=== PATIENT | female | born 1940 | race Caucasian/White ===

== ENCOUNTER → 2016-12-31 | Outpatient (CLI) | payer MEDICARE, OTHER | END | disposition home or self-care (01) | LOC: PCVCIMAG 10:36 | PROVIDERS: ATTEND Internal Medicine | DX: I65.23 Occlusion and stenosis of bilateral carotid arteries (principal); I25.10 Atherosclerotic heart disease of native coronary artery without angina pectoris; I10 Essential (primary) hypertension; E78.5 Hyperlipidemia, unspecified; J44.9 Chronic obstructive pulmonary disease, unspecified; F17.200 Nicotine dependence, unspecified, uncomplicated | CPT/HCPCS: 80061; 93005; 93880; G0463 ==

== ENCOUNTER → 2019-02-11 | Outpatient (CLI) | payer OTHER ==
--- NOTE | 2019-02-11 14:30 | PCVCIMAG ---
APPROVED REPORT Indications Stenosis Doppler Spectral Velocity Analysis PSV / EDVPSV / EDV ECA (R) 103 / 14 cm/sECA (L) 74 / 8 cm/s dICA (R) 43 / 10 cm/sdICA (L) 39 / 11 cm/s Mary (R) 71 / 16 cm/smICA (L) 72 / 15 cm/s pICA (R) 121 / 24 cm/spICA (L) 70 / 16 cm/s Bulb (R) 76 / 14 cm/sBulb (L) 54 / 12 cm/s dCCA (R) 69 / 13 cm/sdCCA (L) 74 / 13 cm/s mCCA (R) 91 / 13 cm/smCCA (L) 81 / 13 cm/s Vert (R) 43 / 5 cm/sVert (L) 38 / 10 cm/s ICA/CCA 1.33ICA/CCA 0.89 Basic Measurements Blood Pressure: Pulses: Right Left RightLeft Brachial(Sitting) 112/70zqGm273/66mmHgTemporal Real Time B-Mode Imaging Vert. (R)AntegradeVert. (L)Antegrade Findings The right carotid bulb has moderate calcified plaque. The right proximal internal carotid artery shows 40-50% stenosis. The right common carotid artery shows no significant stenosis. The right external carotid artery shows no significant stenosis. The left carotid bulb has moderate plaque. The left proximal internal carotid artery shows <40% stenosis. The left common carotid artery shows no significant stenosis. The left external carotid artery shows no significant stenosis. Conclusion 1. Right internal carotid artery stenosis (40-50%). 2. Left internal carotid artery stenosis (<40%) 3. Antegrade vertebral flow
--- NOTE | 2019-02-11 14:44 | PCVCIMAG ---
APPROVED REPORT Study performed: 02/11/2019 13:10:17 EXAM: Comprehensive 2D, Doppler, and color-flow Echocardiogram Patient Location: Echo lab Status: routine BSA: 1.73 HR: 69 bpmBP: 124/74 mmHg Rhythm: NSR Other Information Study Quality: Good Risk Factors: Cardiac Risk Factors: HTN, Hyperlipidemia, Smoking Indications CAD COPD 2D Dimensions IVSd: 9.97 (7-11mm)LVOT Diam: 18.96 (18-24mm) LVDd: 39.53 mm PWd: 9.70 (7-11mm)Ascending Ao: 32.13 (22-36mm) LVDs: 31.56 (25-40mm) Left Atrium: 20.22 (27-40mm) Aortic Root: 27.21 mm LV Single Plane 4CH: 68.95 % LV Single Plane 2CH: 76.31 % Biplane EF: 71.9 % Volumes Left Atrial Volume (Systole) Single Plane 4CH: 19.64 mLSingle Plane 2CH: 16.40 mL LA ESV Index: 11.00 mL/m2 Aortic Valve AoV Peak Geoffrey.: 1.78 m/s AO Peak Gr.: 12.74 mmHgLVOT Max P.54 mmHg LVOT Max V: 1.18 m/s KRISTAL Vmax: 1.86 cm2 Mitral Valve E/A Ratio: 0.7 MV Decel. Time: 303.80 ms MV E Max Geoffrey.: 0.63 m/s MV A Geoffrey.: 0.88 m/s TDI E/Lateral E': 7.88E/Medial E': 9.00 Medial E' Geoffrey.: 0.07 m/s Lateral E' Geoffrey.: 0.08 m/s Pulmonary Valve PV Peak Gr.: 3.61 mmHg Pulmonary Vein P Vein S: 0.45 m/sP Vein A: 0.30 m/s P Vein D: 0.36 m/sP Vein A Dur.: 96.9 msec P Vein S/D Ratio: 1.25 Left Ventricle The left ventricle is normal size. There is normal LV segmental wall motion. There is normal left ventricular wall thickness. Left ventricular systolic function is normal. The left ventricular ejection fraction is within the normal range. LVEF is 60-65%. Mild diastolic dysfunction is present (impaired relaxation pattern). Right Ventricle The right ventricle is normal size. The right ventricular systolic function is normal. Atria The left atrium size is normal. The right atrium size is normal. Aortic Valve The aortic valve is trileaflet, mildly sclerotic No aortic regurgitation is present. There is no aortic valvular stenosis. Mitral Valve The mitral valve is normal in structure. There is no mitral valve regurgitation noted. No evidence of mitral valve stenosis. Tricuspid Valve The tricuspid valve is normal in structure. There is no tricuspid valve regurgitation noted. Pulmonic Valve The pulmonary valve is normal in structure. There is no pulmonic valvular regurgitation. Great Vessels The aortic root is normal in size. IVC is normal in size and collapses >50% with inspiration. Pericardium There is no pericardial effusion. <Conclusion> Left ventricular systolic function is normal. There is normal LV segmental wall motion. LVEF is 60-65%. Mild diastolic dysfunction The aortic valve is trileaflet, mildly sclerotic. No aortic regurgitation or stenosis The mitral valve is normal in structure. No mitral valve regurgitation. Pulmonary artery pressure could not be reliably ascertained There is no pericardial effusion.
== END | disposition home or self-care (01) ==
LOC: PCVCIMAG 12:53
PROVIDERS: ATTEND Internal Medicine
DX: I65.23 Occlusion and stenosis of bilateral carotid arteries (principal); E78.5 Hyperlipidemia, unspecified; F17.200 Nicotine dependence, unspecified, uncomplicated; J44.9 Chronic obstructive pulmonary disease, unspecified
CPT/HCPCS: 93306; 93880